=== PATIENT | female | born 1970 | race Caucasian/White ===

== ENCOUNTER 2018-12-30 17:08 | Emergency (ER) | payer BC, SELFPAY ==
[2018-12-30 17:09] VITALS: BP 141/92; PULSE 64; RESP 16; TEMP 36.4; O2SAT 97
--- NOTE | 2018-12-30 17:25 | ED.GENADUL_ITS ---
Discharge Plan Disposition Patient Disposition: HOME Condition: Improving Discharge Details Chief Complaint: FlankPain Clinical Impression: Calculus, ureteral Primary Care Provider: Mar May ED Provider: Saqib Max Home Meds and New Rx's Prescriptions: New hydrocodone-acetaminophen 5-325 mg tablet 1 tab PO Q6H PRN (Reason: pain) Qty: 6 RF: 0 tamsulosin 0.4 mg capsule 0.4 mg PO QHS Qty: 14 RF: 0 ibuprofen [IBU] 600 mg tablet 600 mg PO Q6H PRN (Reason: pain) Qty: 30 RF: 0 Continued levothyroxine 88 MCG tablet 88 mcg PO DAILY RF: 0 fexofenadine [Aller-ease] 60 mg Tablet PO PRN PRNRF: 0 Discharge Instructions Instructions: Kidney Stones (ED), How to Strain Your Urine (ED) Additional Instructions: Return immediately to the emergency department for any new or significant worse mauricio of symptoms, fever chills, severe vomiting. Otherwise continue to strain your urine, stay well-hydrated, and use pain medication as directed. Call the urology office for arrangement of follow-up appointment. If you do pass the stone on your own you may stop the Flomax/tamsulosin. Referrals: Davonte Wright MD [ [facility] STAFF PHYSICIAN] - (Call the office on Monday for arrangement of follow-up appointment) Discharge Data Discharge Date/Time-TO BE ENTERED AT DEPARTURE: 12/30/18 20:33 Medical Decision Making Patient presenting to the emergency department chief complaint of right flank pain. Patient states that this started approximately 4 hours prior to arrival and woke her up from her nap. She states significant severe right flank pain, some associated nausea. Patient does deny any fever but does state slightly chills. Physical exam is positive for significant right CVA tenderness otherwise unremarkable exam. Plan to do labs and renal colic CT. Pending results patient given IV fluids and ketorolac, Zofran. Review of labs shows a nonspecific leukocytosis, slightly increased creatinine and urinalysis with ketones and blood otherwise nondiagnostic labs. Review of CT scan shows right hydronephrosis with 5 mm stone in the proximal ureter. There are stable renal calculi in both kidneys. No hydronephrosis noted on the left. Patient reassessed and states improvement of pain and discomfort and sensation of feeling that flank pain has resolved but has traveled lower in the pelvis. Patient placed up on Flomax, drug database was queried and shows no signs of concerning findings so patient given limited prescription of narcotic along with ibuprofen for pain control. Return precautions were discussed otherwise patient placed upon list for follow-up with urology. After discussion of diagnosis and plan of care patient has no further needs, questions, or concerns and states clear understanding to return to the emergency department for any worsening symptoms. HPI General Mode of arrival: ambulatory . Date/Time Provider Initiated Documentation: 12/30/18 17:09 . Limitations to Documentation: no limitations . Information obtained by: patient and RN notes reviewed . History of Present Illness 48 year old F presents to the emergency department with the chief complaint of Right flank pain, described as severe, with intensity rated at 10. Quality is described as sharp, and is localized to the right (Flank). Patient abdomen. Patient started experiencing this hour(s) (4) and it has been constant. No relieving factors improve symptom(s), No exacerbating factors reported . Patient did receive the following treatments prior to arrival, none Related Data Home Medications Medication Instructions Recorded Confirmed levothyroxine 88 mcg PO DAILY tab-cap 04/17/17 12/30/18 fexofenadine [Aller-ease] mg PO PRN PRN 12/30/18 hydrocodone-acetaminophen 1 tab PO Q6H PRN #6 tab 12/30/18 ibuprofen [IBU] 600 mg PO Q6H PRN #30 tab 12/30/18 tamsulosin 0.4 mg PO QHS #14 cap 12/30/18 Previous Rx's Medication Instructions Recorded hydrocodone-acetaminophen 1 tab PO Q6H PRN #6 tab 12/30/18 ibuprofen [IBU] 600 mg PO Q6H PRN #30 tab 12/30/18 tamsulosin 0.4 mg PO QHS #14 cap 12/30/18 Allergies Allergy/AdvReac Type Severity Reaction Status Date / Time Penicillins AdvReac Intermediate Nausea Unverified 12/30/18 17:18 raglin Allergy Intermediate Other (See Uncoded 12/30/18 17:18 Comment) General Stated Complaint: FlankPain ANITA: 3 Review of Systems Constitutional Denies chills, Denies fever(s) and Reports poor appetite Cardiovascular Denies chest pain and Denies dyspnea Respiratory Denies cough and Denies dyspnea Gastrointestinal Reports as per HPI, Reports abdominal pain, Denies melena, Denies change in bowel habits, Denies constipation, Denies diarrhea, Reports nausea and Reports vomiting Genitourinary Reports as per HPI, Denies hematuria, Denies dysuria, Reports flank pain, Denies urinary hesitancy and Denies urinary urgency Integumentary/Breasts Denies rash [facility] Medical History Abnormal uterine bleeding Nl EMBx. Diverticulosis occassional blood in stool. Genital herpes outbreaks 1-2x/yr. Declines Rx for treatment or suppression. Hypothyroidism Rx with Synthroid Surgical History Arthroplasty of knee (~1980) L knee Biopsy of breast (~1985) benign lump R breast. Cholecystectomy (~1998) pt reports post op complications Vaginal hysterectomy (05/17/17) With salpingectomy and posterior colporrhaphy. Family History Other Essential hypertension Neoplasm Rheumatoid arthritis Thyroid disease Social History Smoking/Tobacco Use Status: Current every day Drug use: Never Details: smokes less than 1/2 ppd Do you feel safe at home: Yes Do you feel safe in your relationship?: Yes Exam Const General: cooperative Orientation: alert, awake and oriented x3 Resp Effort & Inspection: normal respiratory effort and able to speak in complete sentences Auscultation: clear to auscultation bilaterally Cardio Rate: regular rate Rhythm: regular rhythm Heart Sounds: S1 normal and S2 normal GI Palpation: soft, no hepatosplenomegaly, not firm, no guarding, no masses, no pulsatile masses, not rigid, no splenomegaly and tender Auscultation: normal bowel sounds Back/Spine/Pelvis Back: CVA tenderness (right) Neuro General: alert, awake, oriented x3, gait normal and moves all extremities Course Vital Signs Temperature 36.4 C L 12/30/18 17:09 Pulse 64 12/30/18 17:09 Respiratory Rate 16 12/30/18 17:09 Blood Pressure 141/92 H 12/30/18 17:09 Pulse Oximetry 97 12/30/18 17:09 Temperature 36.4 C L 12/30/18 17:09 Temperature Source Skin 12/30/18 17:09 Pulse 64 12/30/18 17:09 Respiratory Rate 16 12/30/18 17:09 Blood Pressure 141/92 H 12/30/18 17:09 Blood Pressure Position Sitting 12/30/18 17:09 Pulse Oximetry 97 12/30/18 17:09 Oxygen Delivery Method Room Air 12/30/18 17:09 Oxygen Flow Rate 0 12/30/18 17:09 Pain Level 10 12/30/18 17:09 Comment 12/30/18 17:09
[2018-12-30] MEDS: Normal Saline 1,000 ML 1000 ML IV (17:48)
[2018-12-30] MEDS: Ondansetron 4 MG/2 ML VIAL IVP (17:48)
[2018-12-30] MEDS: Ketorolac 30 MG/ML VIAL IVP (17:48)
[2018-12-30 17:52] LABS: Abs Immature Grans 0.02 k/cumm (0.0-0.09); Absolute Basophil Count 0.02 k/cumm (0.0-0.2); Absolute Lymphocyte Count 1.09 k/cumm (1.2-3.4); Absolute Monocyte Count 0.21 k/cumm (0.11-0.7); Basophils % 0.2; HCT 43.3 % (36.0-46.0); Immature Grans % 0.2; Lymphocytes % 8.9; Mean Corp. HGB Concentration 34.6 g/dL (32.0-36.0); Mean Corpuscular Hemoglobin 30.9 pg (27.0-33.0); Mean Corpuscular Volume 89.1 fL (80-95); Mean Platelet Volume 8.8 fL (8.0-11.0); Monocytes % 1.7; Platelet Count 268 x1000/uL (130-400); RBC 4.86 m/cumm (4.00-5.20); RBC Distribution Width 12.8 % (11.7-14.6); White Blood Cell Count 12.28 k/cumm (4.4-10.8)
[2018-12-30 17:53] LABS: Absolute Neutrophil Count 10.93 k/cumm (1.2-6.7)
--- NOTE | 2018-12-30 18:02 | DI.CT_ITS ---
SYMPTOMS/DIAGNOSIS: RIGHT FLANK PAIN NONCONTRAST CT OF THE ABDOMEN AND PELVIS: There is a 5 mm stone within the proximal right ureter at the level of L3. This causes mild hydronephrosis. There are other nonobstructing calculi in both kidneys, right greater than left. The bladder is unremarkable. The patient is status post hysterectomy. The patient is status post cholecystectomy. There is no biliary dilatation. The spleen, pancreas and adrenals are unremarkable. There is prominent diverticulosis of the descending and sigmoid colon, but no evidence of diverticulitis. The ovaries are unremarkable. The appendix appears normal. IMPRESSION: A 5 mm stone in the upper right ureter causing mild right hydronephrosis. There are several other nonobstructing bilateral renal calculi.
--- NOTE | 2018-12-30 18:20 | DI.VRAD_ITS ---
EXAM: CT Abdomen and Pelvis Without Contrast EXAM DATE/TIME: 12/30/2018 5:57 PM CLINICAL HISTORY: 48 years old, female; Abdominal pain; Severe right sided flank pain, no HX kidney stones. Prior surgery; Gallbladder removed years ago. TECHNIQUE: Imaging protocol: Computed tomography of the abdomen and pelvis without contrast. Radiation optimization: All CT scans at this facility use at least one of these dose optimization techniques: automated exposure control; mA and/or kV adjustment per patient size (includes targeted exams where dose is matched to clinical indication); or iterative reconstruction. COMPARISON: US PELVIS TRANSVAG 09/13/2017 3:21 PM FINDINGS: Lungs: No acute infiltrate in either lung base. Liver: Normal visualized portions of the unenhanced liver. Gallbladder and bile ducts: Status post cholecystectomy. No biliary tract dilatation. Pancreas: Normal. No ductal dilation. Spleen: Normal. No splenomegaly. Adrenals: Normal. No mass. Kidneys and ureters: Mild right perinephric and proximal right periureteral stranding. Right hydronephrosis with 5 mm calcified stone within the proximal right ureter at the low L3 vertebral body level. Bilateral calcified renal stones. No left hydronephrosis. Stomach and bowel: Scattered colon diverticuli without evidence of diverticulitis. Appendix: Normal appendix. Intraperitoneal space: Normal. No free air. No significant fluid collection. Vasculature: Unremarkable. No abdominal aortic aneurysm. Lymph nodes: Unremarkable. No enlarged lymph nodes. Bladder: Unremarkable as visualized. Reproductive: Status post hysterectomy. Bones/joints: Unremarkable. No acute fracture. Soft tissues: Unremarkable. IMPRESSION: 1. Mild right perinephric and proximal right periureteral stranding. Right hydronephrosis with 5 mm calcified stone within the proximal right ureter at the low L3 vertebral body level. 2. Bilateral calcified renal stones. 3. Scattered colon diverticuli without evidence of diverticulitis. Dictated and Authenticated by: Garrison Reyna MD. Ordering:ELVIN Cerrato MD
[2018-12-30 19:15] LABS: Bilirubin Negative (Negative); Blood Large (Negative); Clarity Clear (Clear); Glucose Negative (Negative); Ketones 80 mg/dL (Negative); Leukocyte Esterase Negative (Negative); Nitrite Negative (Negative); Specific Gravity 1.015 (1.005-1.025); Urobilinogen 0.2 EU/dL (Up TO 0.2)
[2018-12-30] MEDS: Tamsulosin 0.4 MG CAPCR PO (19:21)
[2018-12-30 19:22] LABS: Epithelial Cells Rare HPF (Negative); RBC >50 (0-2); WBC 0-2 HPF (0-5)
[2018-12-30 19:23] LABS: Bacteria Negative HPF (Negative); C & S Indicated? No; Casts Negative LPF (Negative); Crystals Negative HPF (Negative); Mucus Negative (Negative); Other Cells Negative (Negative)
[2018-12-30 19:47] LABS: ALT 18 U/L (14-59); AST 16 U/L (15-37); Albumin 3.8 g/dL (3.4-5.0); Alkaline Phosphatase 102 U/L (46-116); Anion Gap 10.4 mmol/L (3-11); BUN 11 mg/dL (7-18); Bilirubin, Total 0.4 mg/dL (0.2-1.0); CO2 23.6 mmol/L (21.0-32.0); CREATININE 1.03 mg/dL (0.55-1.02); Calcium 8.6 mg/dL (8.5-10.1); Chloride 103 mmol/L (98-107); Estimated GFR 56.72 (mL/min/1.73m2); Glucose 117 mg/dL (70-100); Potassium 3.8 mmol/L (3.5-5.1); Sodium 137 mmol/L (136-145); Total Protein 7.8 g/dL (6.4-8.2)
--- NOTE | 2018-12-30 20:14 | NUR.NOTE ---
Nursing Note: FAXED REFERAL TO
[2018-12-30] MEDS: HYDROcodone 5/Acetaminophen 325 TAB PO (20:34)
[2018-12-30 20:35] VITALS: BP 139/92; PULSE 88; RESP 16; O2SAT 96
== END 2018-12-30 20:33 | disposition home or self-care (01) ==
PROVIDERS: Emergency Provider Nurse Practitioner Family; PCP Registered Nurse
DX: N13.30 Unspecified hydronephrosis (principal); N20.0 Calculus of kidney
CPT/HCPCS: 36415; 80053; 96361; 96374; 96375; 99284; 74176; 81003; 81015; 85025; J1885; J2405

== ENCOUNTER 2020-09-19 09:56 | Emergency (ER) | payer BC, SELFPAY ==
--- NOTE | 2020-09-19 09:59 | ED.GENADUL_ITS ---
Discharge Plan Disposition Patient Disposition: HOME Condition: Stable Discharge Details Clinical Impression: Low back pain, Hip pain, right Primary Care Provider: Mar May ED Provider: Dejah Oglesby Home Meds and New Rx's Prescriptions: New methocarbamol 500 mg tablet 500 mg PO Q6H PRN (Reason: muscle spasm) Qty: 14 RF: 0 prednisone 20 mg tablet See Rx Instructions .ROUTE .COMPLEX Qty: 12 RF: 0 Continued levothyroxine 88 MCG tablet 88 mcg PO DAILY RF: 0 fexofenadine [Aller-ease] 60 mg Tablet PO PRN PRNRF: 0 hydrocodone-acetaminophen 5-325 mg tablet 1 tab PO Q6H PRN (Reason: pain) Qty: 6 RF: 0 tamsulosin 0.4 mg capsule 0.4 mg PO QHS Qty: 14 RF: 0 ibuprofen [IBU] 600 mg tablet 600 mg PO Q6H PRN (Reason: pain) Qty: 30 RF: 0 famotidine [Pepcid] 20 mg Tablet 20 mg PO QHS RF: 0 acetaminophen 500 mg Capsule 1,000 mg PO Q6H PRNRF: 0 melatonin 10 mg Tablet 10 mg PO HS PRNRF: 0 Discharge Instructions Instructions: Sciatica (ED), Low Back Strain (ED), Lower Back Exercises (ED), Arthritis (ED) Additional Instructions: Apply ice to the affected area several times daily for 20 minutes at a time. Alternate tylenol and motrin as needed and directed for pain. You can take the tramadol for pain not relieved with Tylenol or motrin (ibuprofen). Your prescriptions have been sent electronically to your pharmacy. Call the pharmacy to make sure your prescriptions are ready before pickup. Take the prescriptions as directed. Follow-up with your primary care doctor in 1 week. Return to the emergency department with any worsening or new concerning symptoms. Discharge Data Discharge Physician: Dejah Oglesby Medical Decision Making 50-year-old female with a history of GERD, obesity, hypertension who presents to the ED with complaint of right-sided lower back and buttock pain with radiation to her right hip for the past 6 days. She is standing in the room and appears uncomfortable. She does appear nontoxic and has been normal gait although she is walking slowly and quite upright. Significant tenderness palpation of her midline lumbar spine, right lumbar pa raspinal region or right buttock. Her hip feels normal post x-ray. There is no evidence of overlying cellulitis, trauma, crepitus or rash. She has no focal deficits. She is neurovascular intact. Differential diagnosis includes arthritis, sciatica, muscle strain. History and presentation does not appear c/w cauda equina syndrome, disc herniation or fracture. Patient was offered an x-ray but declined. I discussed that the x- ray may show arthritis which does not necessarily change our treatment plan. We will give a dose of IM Toradol, p.o. oxycodone, p.o. Valium and prednisone here. Prescriptions for methocarbamol, prednisone sent electronically to her pharmacy. She was given a tramadol bottle to go. Advised to follow up with the primary care doctor for re-evaluation. Usual and customary return precautions given prior to discharge. Medical Records Medical records reviewed: Yes I reviewed the patient's medical records. HPI General Mode of arrival: ambulatory . Date/Time Provider Initiated Documentation: 09/19/20 09:57 . Limitations to Documentation: no limitations . Information obtained by: patient . HPI Narrative: Patient is a 50-year-old female with a history of obesity, hypothyroidism who presents to the ED with complaint of right lower back pain with radiation to her right hip for the past 6 days. Patient states that her pain started gradually and she denies any known injury. She states the pain initially was in her right lower back and buttock and then a few days later radiated to her right hip. She states standing in the mirror today it appeared that her right hip area appeared swollen. She denies any known fever, bowel or bladder incontinence, leg pain or swelling, leg weakness or numbness, or saddle anesthesia. She has been taking ibuprofen and Tylenol without relief. She states she has a history of sciatica and states this feels different from that. Related Data Home Medications Medication Instructions Recorded Confirmed levothyroxine 88 mcg PO DAILY tab-cap 04/17/17 09/19/20 fexofenadine [Aller-ease] mg PO PRN PRN 12/30/18 hydrocodone-acetaminophen 1 tab PO Q6H PRN #6 tab 12/30/18 ibuprofen [IBU] 600 mg PO Q6H PRN #30 tab 12/30/18 09/19/20 tamsulosin 0.4 mg PO QHS #14 cap 12/30/18 acetaminophen 1,000 mg PO Q6H PRN 09/19/20 09/19/20 famotidine [Pepcid] 20 mg PO QHS 09/19/20 09/19/20 melatonin 10 mg PO HS PRN 09/19/20 09/19/20 methocarbamol 500 mg PO Q6H PRN #14 tab 09/19/20 prednisone See Rx Instructions .ROUTE 09/19/20 .COMPLEX #12 tab Previous Rx's Medication Instructions Recorded hydrocodone-acetaminophen 1 tab PO Q6H PRN #6 tab 12/30/18 ibuprofen [IBU] 600 mg PO Q6H PRN #30 tab 12/30/18 tamsulosin 0.4 mg PO QHS #14 cap 12/30/18 methocarbamol 500 mg PO Q6H PRN #14 tab 09/19/20 prednisone See Rx Instructions .ROUTE 09/19/20 .COMPLEX #12 tab Allergies Allergy/AdvReac Type Severity Reaction Status Date / Time Penicillins AdvReac Intermediate Nausea Unverified 09/19/20 10:04 raglin Allergy Intermediate Other (See Uncoded 09/19/20 10:04 Comment) General ANITA: 3 Review of Systems All systems reviewed & are unremarkable except as noted in HPI and below Constitutional Constitutional: Reports as per HPI, Denies chills and Denies fever(s) Eyes Eyes: Denies blurry vision ENT Ears, Nose, Mouth, and Throat: Denies dizziness, Denies sore throat and Denies throat swelling Cardiovascular Cardiovascular: Denies chest pain and Denies dyspnea Respiratory Respiratory: Denies cough and Denies dyspnea Gastrointestinal Gastrointestinal: Denies abdominal pain, Denies diarrhea and Denies vomiting Genitourinary Genitourinary: Denies hematuria and Denies dysuria Musculoskeletal Musculoskeletal: Reports back pain and Denies numbness Integumentary/Breasts Skin/Breast: Denies lesions and Denies rash Neurologic Neurologic: Denies dizziness, Denies localized weakness and Denies numbness Allergic/Immunologic Allergic/Immunologic: Denies throat swelling [facility] Medical History (Updated 09/19/20 @ 10:40 by Dejah Oglesby DO) Abnormal uterine bleeding Nl EMBx. Diverticulosis occassional blood in stool. Genital herpes outbreaks 1-2x/yr. Declines Rx for treatment or suppression. Hypothyroidism Rx with Synthroid Surgical History Arthroplasty of knee (~1980) L knee Biopsy of breast (~1985) benign lump R breast. Cholecystectomy (~1998) pt reports post op complications Vaginal hysterectomy (05/17/17) With salpingectomy and posterior colporrhaphy. Family History Other Essential hypertension Neoplasm Rheumatoid arthritis Thyroid disease Social History Smoking/Tobacco Use Status: Current every day Tobacco Type: cigarettes Smoking risk assessment performed?: Yes Alcohol Intake: current Alcohol Intake frequency: holidays/special occasions only Drug use: Never Substance use type: does not use Details: smokes less than 1/2 ppd Do you feel safe at home: Yes Do you feel safe in your relationship?: Yes Exam Const General: cooperative and no acute distress HENMT Head: normal to inspection Face and sinus: normal facial exam Eyes General: appearance normal, both eyes and all related structures EOM: EOM intact bilaterally Neck Neck: normal visual inspection and No submandibular swelling Lymphatic: no lymphadenopathy noted Chest Chest: normal inspection of the chest and no tenderness Resp Effort & Inspection: normal respiratory effort and able to speak in complete sentences Auscultation: clear to auscultation bilaterally Cardio Rate: regular rate Rhythm: regular rhythm GI Inspection: normal to inspection Palpation: soft, not firm, not rigid and nontender Auscultation: normal bowel sounds Back/Spine/Pelvis Thoracic/Lumbar Spine: thoracic and lumbar spine normal to inspection, straight leg raise negative bilaterally, No paraspinal tenderness and No lumbar spinal tenderness Pelvis: no pain with anterior-posterior compression Skin General skin exam: no rashes or lesions noted Neuro General: patient alert, patient awake and patient oriented x3 Cognition: normal cognition Speech: speech normal Motor: muscle tone normal throughout and strength 5/5 throughout Sensory Exam: no sensory deficits noted DTR's: Rt Patellar: 2+, Lt Patellar: 2+ and Rt Ankle: 2+ Plantar Reflexes: Equivocal: bilateral (negative babinski b/l ) Extrem General: normal to inspection, full ROM, capillary refill normal, no calf tender ness bilaterally and no edema Other: Distal pulses intact. Psych Appearance: grossly normal Mental Status: mental status grossly normal Speech and Movement: speech and movement normal Affect: normal affect
[2020-09-19 10:00] VITALS: BP 129/87; PULSE 102; RESP 18; O2SAT 98
[2020-09-19] MEDS: predniSONE 20 MG TAB 60 MG PO (10:46)
[2020-09-19] MEDS: diazePAM 5 MG TAB PO (10:47)
[2020-09-19] MEDS: oxyCODONE 5 MG TAB PO (10:47)
[2020-09-19] MEDS: Ketorolac 30 MG/ML VIAL IM (10:48)
[2020-09-19 11:11] VITALS: BP 121/85; PULSE 108; RESP 20; O2SAT 96
== END 2020-09-19 11:20 | disposition home or self-care (01) ==
PROVIDERS: Emergency Provider Physician Assistant; PCP Registered Nurse
DX: M54.5 Low back pain (principal); M25.551 Pain in right hip
CPT/HCPCS: 96372; 99284; 99283; J1885; J7512

== ENCOUNTER 2023-02-19 10:13 | Emergency (ER) | payer BC, SELFPAY ==
[2023-02-19 10:18] VITALS: BP 113/89; PULSE 109; RESP 18; TEMP 36.6; O2SAT 96
[2023-02-19] MEDS: Normal Saline 1,000 ML 1000 ML IV (10:49)
--- NOTE | 2023-02-19 10:55 | W.ED.GENAD ---
Discharge Plan Disposition Patient Disposition: Home Discharge Details Clinical Impression: C. difficile diarrhea Primary Care Provider: Mar May ED Provider: Saqib Max Home Meds and New Rx's Prescriptions: New Dificid 200 mg tablet 200 mg PO Q12H 10 Days Qty: 20 0RF Proctofoam HC 1-1 % foam 1 applic [place] QID PRN (Reason: hemorrhoids) Qty: 10 0RF Continued levothyroxine 88 MCG tablet 88 mcg PO DAILY fexofenadine [Aller-Ease] 60 mg Tablet PO PRN PRN hydrocodone-acetaminophen 5-325 mg tablet 1 tab PO Q6H PRN (Reason: pain) Qty: 6 0RF tamsulosin 0.4 mg capsule 0.4 mg PO QHS Qty: 14 0RF ibuprofen [IBU] 600 mg tablet 600 mg PO Q6H PRN (Reason: pain) Qty: 30 0RF famotidine [Pepcid] 20 mg Tablet 20 mg PO QHS acetaminophen 500 mg Capsule 1,000 mg PO Q6H PRN melatonin 10 mg Tablet 10 mg PO HS PRN methocarbamol 500 mg tablet 500 mg PO Q6H PRN (Reason: muscle spasm) Qty: 14 0RF prednisone 20 mg tablet See Rx Instructions .ROUTE .COMPLEX Qty: 12 0RF Rx Instructions: Take 3 tabs daily for 2 days, then 2 tabs daily for 2 days, then 1 tab daily for 2 days Discharge Instructions Instructions: C. Diff (Clostridioides Difficile) Infection (ED) Additional Instructions: At this time you do have a noted infectious diarrhea. It is very important that you wash your hands thoroughly after any usage of the bathroom and clean your bathroom well with bleach wipes to prevent spread to others. Please take the antibiotic as prescribed and for the full course of 10 days. Return to the emergency department if you have severe worsening of symptoms, inability to take your antibiotics or further concerns. You may continue to take [id number] probiotics 1-2 times daily and stay well-hydrated. As discussed please dilute Gatorade by 50% with water to reduce further episodes of diarrhea. Referrals: Primary Care Provider [Outside] - 1 week (As needed for reassessment or if not improving) Discharge Data Discharge Date/Time-TO BE ENTERED AT DEPARTURE: 02/19/23 13:23 Medical Decision Making Patient reports 5 days of not feeling well with fever, nausea and diarrhea with feeling slightly lightheaded and shaky after getting out of the shower today. Patient denies any sick contacts, any respiratory symptoms or any other symptom systemic symptoms. Patient has past medical history of diverticulosis, hypothyroidism and hemorrhoids. Physical exam shows soft nontender abdomen with no rigidity or guarding, no peritoneal findings, no surgical abdomen findings, patient does have slight tachycardia otherwise unremarkable exam. Rectal exam was deferred. We will check patient's labs and obtain stool specimen if possible along with COVID and influenza testing. Pending results will give patient fluids Review of labs show an unremarkable CBC with no leukocytosis, CMP does show slightly low potassium at 3.2 which we will orally replete, anion gap of 12 otherwise normal CMP. Urinalysis does show some ketones and blood noted but no signs of infection. Patient is negative for COVID flu and RSV. We were able to obtain a stool specimen that unfortunately did not have enough stool for the full panel but C. difficile was able to be performed and is positive. Discussed with patient any recent medications and she did state that approximately 2 weeks ago she had finished antibiotics for a dental infection and had not had any symptoms since. I do feel this is high likely the cause of patient's symptoms so patient started on appropriate antibiotic for C. difficile and discussed precautions for transmission to others along with return and follow-up. After discussion of diagnosis and plan of care patient has no further needs, questions, or concerns and states clear understanding to return to the emergency department for any worsening symptoms. This documentation was generated using [employer] dictation system, please disregard any oddities of phrase or misspellings. Lab Data Lab results reviewed: Yes I reviewed the patient's lab results. HPI General Mode of arrival: ambulatory. Date/Time Provider Initiated Documentation: 02/19/23 10:22. Limitations to Documentation: no limitations. Information obtained by: patient and RN notes reviewed. History of Present Illness 52 year old F presents to the emergency department with the chief complaint of Diarrhea, fever chills, shakiness nausea, described as moderate, Quality is described as aching, and is localized to the abdomen. Patient started experiencing this day(s) (4) and it has been intermittent. No relieving factors improve symptom(s), No exacerbating factors reported . Patient did receive the following treatments prior to arrival, none Related Data Home Medications Medication Instructions Recorded Confirmed levothyroxine 88 mcg tablet 88 mcg PO DAILY 04/17/17 09/19/20 fexofenadine 60 mg tablet mg PO PRN PRN 12/30/18 (Aller-Ease) hydrocodone 5 mg-acetaminophen 325 1 tab PO Q6H PRN pain #6 tabs 12/30/18 mg tablet ibuprofen 600 mg tablet (IBU) 600 mg PO Q6H PRN pain #30 tabs 12/30/18 09/19/20 tamsulosin 0.4 mg capsule 0.4 mg PO QHS #14 caps 12/30/18 acetaminophen 500 mg capsule 1,000 mg PO Q6H PRN 09/19/20 09/19/20 famotidine 20 mg tablet (Pepcid) 20 mg PO QHS 09/19/20 09/19/20 melatonin 10 mg tablet 10 mg PO HS PRN 09/19/20 09/19/20 methocarbamol 500 mg tablet 500 mg PO Q6H PRN muscle spasm #14 09/19/20 tabs prednisone 20 mg tablet See Rx Instructions .Route 09/19/20 .COMPLEX #12 tabs fidaxomicin 200 mg tablet (Dificid) 200 mg PO Q12H 10 days #20 tabs 02/19/23 hydrocortisone 1 %-pramoxine 1 % 1 applic AL QID PRN hemorrhoids 02/19/23 rectal foam (Proctofoam HC) #10 grams Previous Rx's Medication Instructions Recorded hydrocodone 5 mg-acetaminophen 325 1 tab PO Q6H PRN pain #6 tabs 12/30/18 mg tablet ibuprofen 600 mg tablet (IBU) 600 mg PO Q6H PRN pain #30 tabs 12/30/18 tamsulosin 0.4 mg capsule 0.4 mg PO QHS #14 caps 12/30/18 methocarbamol 500 mg tablet 500 mg PO Q6H PRN muscle spasm #14 09/19/20 tabs prednisone 20 mg tablet See Rx Instructions .Route 09/19/20 .COMPLEX #12 tabs fidaxomicin 200 mg tablet (Dificid) 200 mg PO Q12H 10 days #20 tabs 02/19/23 hydrocortisone 1 %-pramoxine 1 % 1 applic [place] QID PRN hemorrhoids 02/19/23 rectal foam (Proctofoam HC) #10 grams Allergies Allergy/AdvReac Type Severity Reaction Status Date / Time Penicillins AdvReac Intermediate Nausea Unverified 09/19/20 10:04 raglin Allergy Intermediate Other (See Uncoded 09/19/20 10:04 Comment) General Stated Complaint: Nausea/Vomit/Diar ANITA: 3 Review of Systems Constitutional Constitutional: Reports chills, Reports fever(s), Reports malaise, Reports poor appetite and Reports weakness Cardiovascular Cardiovascular: Denies chest pain and Denies dyspnea Respiratory Respiratory: Denies cough and Denies dyspnea Gastrointestinal Gastrointestinal: Reports as per HPI, Reports abdominal pain, Denies melena, Reports hematochezia (Due to flareup of ongoing hemorrhoids), Denies change in bowel habits, Denies constipation, Reports diarrhea, Reports nausea and Denies vomiting Genitourinary Genitourinary: Denies hematuria, Denies dysuria, Denies urinary incontinence, Denies urinary hesitancy, Denies urinary urgency and Denies vaginal discharge Integumentary/Breasts Skin/Breast: Denies rash Neurologic Neurologic: Reports weakness PFSH All Active Problems (Updated 02/19/23 @ 12:38 by Saqib Max NP) C. difficile diarrhea (Acute) Acquired hypothyroidism (Acute 04/26/17) Hip pain, right (Acute) Low back pain (Acute) Medical History (Updated 02/19/23 @ 12:38 by Saqib Max NP) Diverticulosis of large intestine without hemorrhage (04/26/17) Abnormal uterine bleeding Nl EMBx. Hypothyroidism Rx with Synthroid Genital herpes outbreaks 1-2x/yr. Declines Rx for treatment or suppression. Diverticulosis occassional blood in stool. Surgical History Vaginal hysterectomy (05/17/17) With salpingectomy and posterior colporrhaphy. Cholecystectomy (~1998) pt reports post op complications Biopsy of breast (~1985) benign lump R breast. Arthroplasty of knee (~1980) L knee Family History Other Essential hypertension Neoplasm Rheumatoid arthritis Thyroid disease Social History Smoking/Tobacco Use Status: Current every day Tobacco Type: cigarettes Smoking risk assessment performed?: Yes Alcohol Intake: current Alcohol Intake frequency: holidays/special occasions only Drug use: Never Substance use type: does not use Details: smokes less than 1/2 ppd Do you feel safe at home: Yes Do you feel safe in your relationship?: Yes Exam Const General: cooperative Orientation: alert, awake and oriented x3 Resp Effort & Inspection: normal respiratory effort and able to speak in complete sentences Auscultation: clear to auscultation bilaterally Cardio Rate: tachycardic Rhythm: regular rhythm Heart Sounds: S1 normal and S2 normal GI Palpation: soft, no hepatosplenomegaly, not firm, no guarding, no masses, no pulsatile masses, not rigid, no splenomegaly and tender (Diffuse nonfocal) Auscultation: normal bowel sounds Rectal Exam - female: deferred Back/Spine/Pelvis Back: no CVA tenderness Neuro General: patient alert, patient awake, patient oriented x3, gait normal and moves all extremities Course Vital Signs Vital signs: Vital Signs Temperature 36.6 C 02/19/23 10:18 Pulse 109 H 02/19/23 10:18 Respiratory Rate 18 02/19/23 10:18 Blood Pressure 113/89 02/19/23 10:18 Pulse Oximetry 96 02/19/23 10:18 Temperature 36.6 C 02/19/23 10:18 Temperature Source Skin 02/19/23 10:18 Pulse 109 H 02/19/23 10:18 Respiratory Rate 18 02/19/23 10:18 Respiratory Effort Normal 02/19/23 10:21 Blood Pressure 113/89 02/19/23 10:18 Blood Pressure Position Sitting 02/19/23 10:18 Pulse Oximetry 96 02/19/23 10:18 Lab/Test Results Lab/Test Results: Laboratory Tests Range/Units 02/19/23 10:40 COVID-19 Source Nasal/Nares
[2023-02-19 10:56] LABS: Abs Immature Grans 0.03 10^3/uL (0.0-0.06); Absolute Basophil Count 0.04 10^3/uL (0.0-0.2); Absolute Eosinophil Count 0.14 10^3/uL (0.0-0.7); Absolute Lymphocyte Count 1.74 10^3/uL (1.2-3.4); Absolute Monocyte Count 0.54 10^3/uL (0.1-0.8); Absolute Neutrophil Count 5.24 10^3/uL (1.2-6.7); Basophils % 0.5; Eosinophils % 1.8; HCT 41.8 % (36.0-46.0); HGB 14.6 g/dL (11.2-15.7); Immature Grans % 0.4; Lymphocytes % 22.5; MCH 30.2 pg (27.0-33.0); MCHC 34.9 % (32.0-36.0); MCV 86 fL (80-95); MPV 8.6 fL (8.0-11.0); Neutrophils % 67.8; Platelet Count 265 10^3/uL (130-400); RBC 4.84 10^6/uL (3.93-5.22); RDW 12.6 % (11.7-14.6); RDW-SD 39.8 fL; WBC 7.73 10^3/uL (4.4-10.8)
[2023-02-19 10:58] LABS: Bilirubin Small (Negative); Blood Moderate (Negative); Clarity Clear (Clear); Glucose Negative (Negative); Ketones 40 mg/dL (Negative); Leukocyte Esterase Negative (Negative); Nitrite Negative (Negative); Specific Gravity 1.025 (1.005-1.025); Urobilinogen 0.2 mg/dL (Up to 0.2)
[2023-02-19 11:08] LABS: Bacteria Few HPF (Negative); Crystals Negative HPF (Negative); Epithelial Cells Rare HPF (Negative); Mucus Heavy (Negative); WBC 0-2 HPF (0-5)
[2023-02-19 11:09] LABS: C & S Indicated? Yes
[2023-02-19 11:23] LABS: Lipase 70 U/L (16-77)
[2023-02-19 11:27] LABS: ALT 22 U/L (14-59); AST 20 U/L (15-37); Albumin 3.8 g/dL (3.4-5.0); Alkaline Phosphatase 102 U/L (46-116); BUN 15 mg/dL (7-18); Bilirubin, Total 0.4 mg/dL (0.2-1.0); CREATININE 0.9 mg/dL (0.55-1.02); Calcium 9.5 mg/dL (8.5-10.1); Chloride 103 mmol/L (98-107); Estimated GFR 75.97 (mL/min/1.73m2); Glucose 101 mg/dL (74-106); Magnesium 2.3 mg/dL (1.8-2.4); Potassium 3.2 mmol/L (3.5-5.1); Sodium 140 mmol/L (136-145); Total Protein 7.7 g/dL (6.4-8.2)
[2023-02-19 12:00] LABS: COVID-19 PCR Negative (Negative); Influenza A PCR Negative (Negative); Influenza B PCR Negative (Negative); RSV PCR Negative (Negative); Source Nasopharynx
[2023-02-19] MEDS: Potassium Chloride 20 MEQ TABCR 40 MEQ PO (12:06)
[2023-02-19 12:23] LABS: C Diff PCR Positive (Negative)
[2023-02-19 12:54] VITALS: BP 115/74; PULSE 67; RESP 16; O2SAT 97
[2023-02-19] MEDS: Fidaxomicin 200 MG TAB PO (13:01)
--- NOTE | 2023-02-21 08:29 | NUR.NOTE ---
Accessed pt chart to determine antibiotic on discharge for culture. Nursing Note:
--- NOTE | 2023-02-21 14:41 | W.EDPROG ---
Date of service: 02/20/23 Time of Service: 14:43 Medical Decision Making pharmacy called, proctofoam requires prior authorization. changed to hydrocortisone 2.5. initially misunderstood call and changed dificid to vanco, but confirmed with pharmacist that she was able to get the abx and that this med wasn't the issue. Discharge Plan Disposition Patient Disposition: Home Discharge Details Clinical Impression: C. difficile diarrhea Primary Care Provider: Mar May ED Provider: Saqib Max Home Meds and New Rx's Prescriptions: New Dificid 200 mg tablet 200 mg PO Q12H 10 Days Qty: 20 0RF Proctofoam HC 1-1 % foam 1 applic [place] QID PRN (Reason: hemorrhoids) Qty: 10 0RF Continued levothyroxine 88 MCG tablet 88 mcg PO DAILY fexofenadine [Aller-Ease] 60 mg Tablet PO PRN PRN hydrocodone-acetaminophen 5-325 mg tablet 1 tab PO Q6H PRN (Reason: pain) Qty: 6 0RF tamsulosin 0.4 mg capsule 0.4 mg PO QHS Qty: 14 0RF ibuprofen [IBU] 600 mg tablet 600 mg PO Q6H PRN (Reason: pain) Qty: 30 0RF famotidine [Pepcid] 20 mg Tablet 20 mg PO QHS acetaminophen 500 mg Capsule 1,000 mg PO Q6H PRN melatonin 10 mg Tablet 10 mg PO HS PRN methocarbamol 500 mg tablet 500 mg PO Q6H PRN (Reason: muscle spasm) Qty: 14 0RF prednisone 20 mg tablet See Rx Instructions .ROUTE .COMPLEX Qty: 12 0RF Rx Instructions: Take 3 tabs daily for 2 days, then 2 tabs daily for 2 days, then 1 tab daily for 2 days Discharge Instructions Instructions: C. Diff (Clostridioides Difficile) Infection (ED) Additional Instructions: At this time you do have a noted infectious diarrhea. It is very important that you wash your hands thoroughly after any usage of the bathroom and clean your bathroom well with bleach wipes to prevent spread to others. Please take the antibiotic as prescribed and for the full course of 10 days. Return to the emergency department if you have severe worsening of symptoms, inability to take your antibiotics or further concerns. You may continue to take [id number] probiotics 1-2 times daily and stay well-hydrated. As discussed please dilute Gatorade by 50% with water to reduce further episodes of diarrhea. Referrals: Primary Care Provider [Outside] - 1 week (As needed for reassessment or if not improving) Discharge Data Discharge Date/Time-TO BE ENTERED AT DEPARTURE: 02/19/23 13:23
== END 2023-02-19 13:23 | disposition home or self-care (01) ==
PROVIDERS: Emergency Provider Nurse Practitioner Family; PCP Registered Nurse
DX: A04.72 Enterocolitis due to Clostridium difficile, not specified as recurrent (principal); F17.210 Nicotine dependence, cigarettes, uncomplicated; Z20.822 Contact with and (suspected) exposure to COVID-19
CPT/HCPCS: 00123; 80053; 83690; 87329; 87493; 87505; 87635; 87637; 96360; 99283; 81003; 81015; 83735; 85025; 87086; 87177

== ENCOUNTER 2023-11-15 18:29 | Emergency (ER) | payer BC, SELFPAY ==
--- NOTE | 2023-11-15 18:30 | RT.EKG_ITS ---
APPROVED REPORT Exam: Resting ECG Reason for Exam: left shoulder pain no injury Patient Location: E HR:84 bpm ECG Measurements Heart Rate 84 AXIS AZ 179 P 46 QRSd 86 QRS 30 QT 367 T 40 QTc 435 Conclusion Sinus rhythm at a rate of 84 without acute ischemic change.
[2023-11-15 18:33] VITALS: BP 157/104; PULSE 98; RESP 18; TEMP 36.7; O2SAT 98
[2023-11-15 19:49] VITALS: BP 129/92; PULSE 80; TEMP 36.3; O2SAT 95
--- NOTE | 2023-11-15 19:57 | DI.RAD_ITS ---
Exam(s) XR SHOULDER LT COMPLETE 2+V EXAM: XR SHOULDER LT COMPLETE 2+V CLINICAL HISTORY: pain with movement, hx of fracture yrs prior. TECHNIQUE: 2D digital imaging was performed. COMPARISON: No exams were available for comparison FINDINGS: Four views. No evidence of acute fracture or dislocation. No abnormal soft tissue calcifications. No obvious de generative changes in the glenohumeral and AC joint. There is a deformity at the junction of the mid and lateral thirds of the clavicle consistent with healed fracture site deformity. No acute fractur es identified. No significant osseous lesions IMPRESSION: No acute osseous findings. Fracture deformity of the left clavicle evident/healed fracture site. DATA REPOSITORY: RADIATION DOSE DELIVERED:
--- NOTE | 2023-11-15 19:58 | W.ED.GENAD ---
Discharge Plan Disposition Patient Disposition: Home Condition: Stable Discharge Details Clinical Impression: Acute shoulder pain Primary Care Provider: Orly Snider ED Provider: Apple Torres Home Meds and New Rx's Prescriptions: New prednisone 20 mg tablet 60 mg PO DAILY Qty: 15 0RF No Action levothyroxine 88 MCG tablet 88 mcg PO DAILY fexofenadine [Aller-Ease] 60 mg Tablet PO PRN PRN hydrocodone-acetaminophen 5-325 mg tablet 1 tab PO Q6H PRN (Reason: pain) Qty: 6 0RF tamsulosin 0.4 mg capsule 0.4 mg PO QHS Qty: 14 0RF ibuprofen [IBU] 600 mg tablet 600 mg PO Q6H PRN (Reason: pain) Qty: 30 0RF famotidine [Pepcid] 20 mg Tablet 20 mg PO QHS acetaminophen 500 mg Capsule 1,000 mg PO Q6H PRN melatonin 10 mg Tablet 10 mg PO HS PRN methocarbamol 500 mg tablet 500 mg PO Q6H PRN (Reason: muscle spasm) Qty: 14 0RF prednisone 20 mg tablet See Rx Instructions .ROUTE .COMPLEX Qty: 12 0RF Rx Instructions: Take 3 tabs daily for 2 days, then 2 tabs daily for 2 days, then 1 tab daily for 2 days Proctofoam HC 1-1 % foam 1 applic [place] QID PRN (Reason: hemorrhoids) Qty: 10 0RF Discharge Instructions Instructions: Shoulder Pain (DC) Additional Instructions: Please follow-up with your primary care provider. In the meantime return to the emergency department immediately with any worsening symptoms or any other concerns. Discharge Data Discharge Date/Time-TO BE ENTERED AT DEPARTURE: 11/15/23 21:33 HPI General Date/Time Provider Initiated Documentation: 11/15/23 18:42. HPI Narrative: The patient is a 53-year-old female who is currently being worked up for yet to be diagnosed rheumatologic condition resulting in various joint pains, prior history of poorly healed clavicle fracture who comes the emergency department for left shoulder pain. The patient reports that she woke up Monday morning with pain to both shoulders. Reports as the day went on the pain to the right shoulder had subsided but the left shoulder pain continued. Reports at 3 AM on Monday she woke up with significant left shoulder pain. Reports she had not fallen or injured herself recently. Denies any new or worsening numbness or tingling sensation. Reports the pain is worse with movement. Denies any fevers or chills. Denies any chest pain or shortness of breath. Denies abdominal pain, nausea or vomiting. Reports years ago she sustained a clavicular fracture that never healed right but it had never given her any problems up until today. Reports that she wanted to get imaging studies just to make sure there is nothing else going on in the area. Related Data Home Medications ?Medication ?Instructions ?Recorded ?Confirmed levothyroxine 88 mcg tablet 88 mcg PO DAILY 04/17/17 09/19/20 fexofenadine 60 mg tablet mg PO PRN PRN 12/30/18 (Aller-Ease) hydrocodone 5 mg-acetaminophen 325 1 tab PO Q6H PRN pain #6 tabs 12/30/18 mg tablet ibuprofen 600 mg tablet (IBU) 600 mg PO Q6H PRN pain #30 tabs 12/30/18 09/19/20 tamsulosin 0.4 mg capsule 0.4 mg PO QHS #14 caps 12/30/18 acetaminophen 500 mg capsule 1,000 mg PO Q6H PRN 09/19/20 09/19/20 famotidine 20 mg tablet (Pepcid) 20 mg PO QHS 09/19/20 09/19/20 melatonin 10 mg tablet 10 mg PO HS PRN 09/19/20 09/19/20 methocarbamol 500 mg tablet 500 mg PO Q6H PRN muscle spasm #14 09/19/20 tabs prednisone 20 mg tablet See Rx Instructions .Route 09/19/20 .COMPLEX #12 tabs hydrocortisone 1 %-pramoxine 1 % 1 applic [place] QID PRN hemorrhoids 02/19/23 rectal foam (Proctofoam HC) #10 grams prednisone 20 mg tablet 60 mg (3 x 20 mg) PO DAILY #15 tabs 11/15/23 Previous Rx's ?Medication ?Instructions ?Recorded hydrocodone 5 mg-acetaminophen 325 1 tab PO Q6H PRN pain #6 tabs 12/30/18 mg tablet ibuprofen 600 mg tablet (IBU) 600 mg PO Q6H PRN pain #30 tabs 12/30/18 tamsulosin 0.4 mg capsule 0.4 mg PO QHS #14 caps 12/30/18 methocarbamol 500 mg tablet 500 mg PO Q6H PRN muscle spasm #14 09/19/20 tabs prednisone 20 mg tablet See Rx Instructions .Route 09/19/20 .COMPLEX #12 tabs hydrocortisone 1 %-pramoxine 1 % 1 applic [place] QID PRN hemorrhoids 02/19/23 rectal foam (Proctofoam HC) #10 grams prednisone 20 mg tablet 60 mg (3 x 20 mg) PO DAILY #15 tabs 11/15/23 Allergies Allergy/AdvReac Type Severity Reaction Status Date / Time Penicillins AdvReac Intermediate Nausea Unverified 09/19/20 10:04 raglin Allergy Intermediate Other (See Uncoded 09/19/20 10:04 Comment) General Stated Complaint: GenMedical ANITA: 3 Review of Systems Narrative: Review of systems are negative except as mentioned. Exam Narrative Exam Narrative: The patient is in no acute distress. No midline lumbar or thoracic spine tenderness is noted to palpation. No midline cervical spine or paraspinal neck tenderness is noted to palpation. Heart is regular in rate and rhythm. Lungs are clear to auscultation. Abdomen is soft without tenderness to palpation throughout. The patient has bony protuberance along the left clavicle which she reports is from a prior injury. She has no clavicular tenderness however on the left side. The left shoulder is tender to palpation on the posterior aspect without obvious deformity, overlying erythema or increased warmth to touch. The patient has tenderness and range of motion testing to the left shoulder in particular with shoulder abduction, flexion and extension. She does not have tenderness to palpation along the upper arm on the left side, left elbow, left forearm, left wrist or left hand. She has intact sensation to light touch throughout the entire left upper extremity particular along the left deltoid distribution with equal radial pulses bilaterally. The right upper extremity particular the right shoulder is nontender to palpation range of motion testing. Course Vital Signs Vital signs: Vital Signs Temperature 36.7 C 11/15/23 18:33 Pulse 98 H 11/15/23 18:33 Respiratory Rate 18 11/15/23 18:33 Blood Pressure 157/104 H 11/15/23 18:33 Pulse Oximetry 98 11/15/23 18:33 Temperature 36.3 C L 11/15/23 19:49 Temperature Source Tympanic 11/15/23 19:49 Pulse 80 11/15/23 19:49 Respiratory Rate 18 11/15/23 18:33 Blood Pressure 129/92 H 11/15/23 19:49 Blood Pressure Position Supine 11/15/23 18:33 Pulse Oximetry 95 11/15/23 19:49 Oxygen Delivery Method Room Air 11/15/23 19:49 Oxygen Flow Rate 0 11/15/23 19:49 Pain Level 3 11/15/23 19:49 Medical Decision Making Because of the location of her pain EKG had been ordered and it is nondiagnostic. Because of the reproducible nature of her pain with palpation and range of motion testing without any cardiac complaints at all and no risk factor for cardiac disease apart from obesity I will hold off on cardiac workup. Although there has been no trauma or injury to the shoulder I ordered an x-ray study. Patient would like to try lidocaine patches so this will be ordered for her as well. The patient's x-ray is back and this is nondiagnostic. I had a long conversation with the patient regarding her symptoms and her x-ray today. She informs me that she has been dealing with multiple joint aches, paresthesias for quite some time and waiting for evaluation with rheumatology but not for another 9 months. Reports she has seen the salon customer experience specialist without any finding. Reports that she had taken narcotics, [id number] medication without improvement of symptoms. Reports that she does plan on following up with chiropractor tomorrow with a holistic approach in the hopes that they can offer her some insight to her symptoms and recommendation to help with her discomfort. I told her for tonight what I can offer her is time for pain relief however the patient did not wish to take narcotics at all. Reports that she had taken them in the past without improvement of symptoms. I told her if her shoulder pain is rheumatologic in nature it may be beneficial for her to start taking NSAIDs. Reports that she has taken tyzp-shc-uvxjilh NSAIDs already without improvement. I told her we can try steroids and she is willing to give this a try so she will get a dose now and a prescription sent to her preferred pharmacy. I told her in the meantime if she does get worse or develop any new or concerning symptoms return to the emergency department but for now to please follow-up with her primary care doctor. Imaging Data Radiologic Study: Imaging: X-Ray Radiologist's impression: Shoulder x-ray: No acute fracture or dislocation. Quality:SDOH Health Related Social Needs: No Data to Display PFSH All Active Problems (Updated 11/15/23 @ 21:19 by Apple Torres DO) Acute shoulder pain (Acute) Acquired hypothyroidism (Acute 04/26/17) Hip pain, right (Acute) Low back pain (Acute) Medical History (Updated 11/15/23 @ 21:19 by Apple Torres DO) Diverticulosis of large intestine without hemorrhage (04/26/17) Abnormal uterine bleeding Nl EMBx. Hypothyroidism Rx with Synthroid Genital herpes outbreaks 1-2x/yr. Declines Rx for treatment or suppression. Diverticulosis occassional blood in stool. Surgical History Vaginal hysterectomy (05/17/17) With salpingectomy and posterior colporrhaphy. Cholecystectomy (~1998) pt reports post op complications Biopsy of breast (~1985) benign lump R breast. Arthroplasty of knee (~1980) L knee Family History Other Essential hypertension Neoplasm Rheumatoid arthritis Thyroid disease Social History Smoking/Tobacco Use Status: Current every day Tobacco Type: cigarettes Smoking risk assessment performed?: Yes Alcohol Intake: current Alcohol Intake frequency: holidays/special occasions only Drug use: Never Substance use type: does not use Details: smokes less than 1/2 ppd Housing: house Do you feel safe at home: Yes Do you feel safe in your relationship?: Yes
[2023-11-15] MEDS: Lidocaine 5% Patch 1 PATCH TP (20:16)
--- NOTE | 2023-11-15 20:38 | DI.VRAD_ITS ---
PROCEDURE INFORMATION: Exam: XR Left Shoulder Exam date and time: 11/15/2023 8:07 PM Age: 53 years old Clinical indication: Other: Pain with movement, HX of fracture yrs prior TECHNIQUE: Imaging protocol: Radiologic exam of the left shoulder. Views: 2 or more views. COMPARISON: No relevant prior studies available. FINDINGS: Bones/joints: Question old healed clavicular diaphyseal fracture, correlate with trauma history. No acute fracture or dislocation. Acromioclavicular and coracoclavicular intervals are preserved. Soft tissues: No focal abnormality. IMPRESSION: No acute fracture or dislocation. Dictated and Authenticated by: John Storey MD. Ordering:JESSI Chiu MD
[2023-11-15] MEDS: predniSONE 20 MG TAB 60 MG PO (21:32)
== END 2023-11-15 21:33 | disposition home or self-care (01) ==
PROVIDERS: Emergency Provider Emergency Medicine; PCP Registered Nurse
DX: M25.512 Pain in left shoulder (principal)
CPT/HCPCS: 93005; 99283; 73030; 93010; J7512